=== PATIENT | female | born 1945 | race Caucasian/White ===

== ENCOUNTER 2018-01-07 19:44 | Observation (INO) ==
[2018-01-07] MEDS ORDERED: Adenosine Inj 6 MG/2 ML Syringe IV.PUSH ONE (19:59)
[2018-01-07] MEDS ORDERED: Sod Chloride 0.9% Inj 1,000 ML IV.SIG ONE (20:12)
--- NOTE | 2018-01-07 20:19 | ED ---
HPI General Chief Complaint: Chest Pain Stated Complaint: Cardiac Time Seen by Provider: 01/07/18 19:51 Source: patient and RN notes reviewed Mode of arrival: EMS Limitations: no limitations History of Present Illness HPI narrative: 72-year-old female presents to the emergency department via EMS for evaluation of chest pain, SVT. According to EMS, she called 911 for chest pain. Upon arrival, heart rate was 200. EKG showed SVT. Patient was given adenosine 6 mg IV and converted to sinus tachycardia, heart rate 115-120. The patient reports history of cardiac surgery when she was young child. She takes lisinopril that she was recently started on for hypertension. Since she converted to sinus tachycardia, patient states she feels back to her baseline and has no chest pain. While EMS was giving report, patient's heart rate went back up to 180. MD complaint: Reports chest pain STEMI Alert: No Duration: improved Onset: during rest Pain location: Reports substernal Severity: moderate Quality: Reports tightness Pain radiation: Reports none Relieving factors: other (converting to ST from SVT) Treatments prior to arrival chest pain: Reports other (adenosine 6 mg) Related Data Home Medications Medication Instructions Recorded Confirmed bupropion HCl [Wellbutrin SR] 150 mg PO BID 01/07/18 01/07/18 diazepam 5 mg PO BID 01/07/18 01/07/18 furosemide [Lasix] 40 mg PO DAILY 01/07/18 01/07/18 levothyroxine [Synthroid] 88 mcg PO DAILY 01/07/18 01/07/18 lisinopril 10 mg PO DAILY 01/07/18 01/07/18 Allergies Allergy/AdvReac Type Severity Reaction Status Date / Time adhesive Allergy Severe RASH Verified 01/08/18 00:49 aspirin Allergy Severe CANNOT Verified 01/08/18 00:49 TAKE DUE TO GASTRIC BYPASS atorvastatin Allergy Severe CANNOT Verified 01/08/18 00:49 TAKE DUE TO GASTRIC BYPASS azithromycin Allergy Severe CANNOT Verified 01/08/18 00:49 TAKE DUE TO GASTRIC BYPASS codeine Allergy Severe RAPID Verified 01/08/18 00:49 HEART RATE doxycycline Allergy Severe CANNOT Verified 01/08/18 00:49 TAKE DUE TO GASTRIC BYPASS ibuprofen Allergy Severe CANNOT Verified 01/08/18 00:49 TAKE DUE TO GASTRIC BYPASS minocycline Allergy Severe CANNOT Verified 01/08/18 00:49 TAKE DUE TO GASTRIC BYPASS tigecycline Allergy Severe CANNOT Verified 01/08/18 00:49 TAKE DUE TO GASTRIC BYPASS ALL ANTIBIOTICS EXCEPT Allergy Severe Rash, Uncoded 01/08/18 00:49 AMOXICILLIN Localized CRESTOR Allergy Severe CANNOT Uncoded 01/08/18 00:49 TAKE DUE TO GASTRIC BYPASS Review of Systems ROS: all other systems reviewed are negative PMFSH Social History Social History Substance History: No History of Abuse Second Hand Smoke Exposure: No Smoking Status: Never smoker How Often Do You Have a Drink Containing Alcohol: Never Exam Narrative Exam Narrative: GENERAL: Well-nourished, well-developed female patient, afebrile. SKIN: Focused skin assessment warm/dry. HEAD: Normocephalic. Atraumatic. EYES: No scleral icterus. No injection or drainage. NECK: Supple, trachea midline. No JVD or lymphadenopathy. CARDIOVASCULAR: Regular rhythm without murmurs, gallops, or rubs. Patient is tachycardic with HR in the 180's RESPIRATORY: Breath sounds equal bilaterally. No accessory muscle use. Lung sounds are clear to auscultation. GASTROINTESTINAL: Abdomen soft, non-tender, nondistended. MUSCULOSKELETAL: No cyanosis, or edema. BACK: Nontender without obvious deformity. No CVA tenderness. Course Initial Documented Vital Signs Pulse Rate 178 H 01/07/18 19:49 Respiratory Rate 18 01/07/18 19:49 Blood Pressure 132/77 01/07/18 19:49 Pulse Oximetry 97 01/07/18 19:49 Last Documented Vital Signs Temperature 98.2 F 01/08/18 14:56 Pulse Rate 86 01/08/18 18:00 Respiratory Rate 18 01/08/18 16:07 Blood Pressure 151/92 H 01/08/18 16:07 Pulse Oximetry 96 01/08/18 16:07 Medical Decision Making RAMONA Attestation RAMONA supervised visit: Yes Attestation: I, Dr. Oconnor, have reviewed the advance practice practitioner's documentation and am in agreement, met with the patient face to face, made the diagnosis, and the medical decision making was done by me. *My assessment and Findings: [-Patient is 72-year-old female presented to emergency room with high heart rate, initially was treated for SVT, heart rate improved she was diagnosed with new onset of atrial fibrillation. She improved with Cardizem. Patient was admitted for new onset of A. fib with RVR and chest pain.] [facility] Narrative Medical decision making narrative: 72-year-old female presents to the emergency department via EMS for evaluation of chest pain, SVT. Patient was given adenosine 6 mg IV prior to arrival. However, during EMSs report, patient back into SVT. Vagal maneuvers were attempted, but failed. Patient was given adenosine 12 mg IV and converted to sinus tachycardia, heart rate 115-120. Repeat EKG is ordered. CBC, CMP, CK, troponin, magnesium, PTT, PT/INR, d-dimer , chest x-ray are ordered and pending. Patient is given normal saline 1 L IV bolus. Repeat EKG shows atrial fibrillation, heart rate 110. CBC shows slight leukocytosis 11.1. CMP shows creatinine 1.11. CK is 148. Troponin is 0.04. Magnesium is 2.0. PTT is 19.4. PT/INR is 10.6/1.0. D-dimer is 0.50. Chest x- ray shows no evidence of acute cardiopulmonary disease. Patient's heart rate went back up to 164. Patient is given Cardizem 20 mg IV. Heart rate is down to 90s to low 100s. She is given metoprolol 50 mg p.o. Patient will be admitted for A. fib with RVR, chest pain. Dr. Lowry accepted admission. Medical Screen Exam Complete: Yes Emergency Medical Condition: Yes Differential Diagnosis Differential Diagnosis: SVT vs. ACS vs. electrolyte abnormality vs. dehydration vs. PE Medical Records Medical records reviewed: Yes I reviewed the patient's medical records. Lab Data Result diagrams: 01/08/18 06:27 01/08/18 06:27 Lab Results 01/07/18 01/07/18 01/07/18 Range/Units 20:25 20:25 20:25 WBC 11.1 H (4.0-11.0) th/mm3 RBC 4.25 (4.00-5.30) mil/mm3 Hgb 14.0 (11.6-15.3) gm/dL Hct 42.7 (35.0-46.0) % MCV 100.4 H (80.0-100.0) fL MCH 32.8 (27.0-34.0) pg MCHC 32.7 (32.0-36.0) % RDW 14.7 (11.6-17.2) % Plt Count 238 (150-450) th/mm3 MPV 9.5 (7.0-11.0) fL Prelim Diff (Auto) Slide review pending Neut % (Auto) 74.6 H (16.0-70.0) % Lymph % (Auto) 14.2 (9.0-44.0) % [place] % (Auto) 9.5 H (0.0-8.0) % Eos % (Auto) 1.5 (0.0-4.0) % Baso % (Auto) 0.2 (0.0-2.0) % Neut # (Auto) 8.3 H (1.8-7.7) th/mm3 Lymph # (Auto) 1.6 (1.0-4.8) th/mm3 [place] # (Auto) 1.1 H (0.0-0.9) th/mm3 Eos # (Auto) 0.2 (0.0-0.4) th/mm3 Baso # (Auto) 0.0 (0.0-0.2) th/mm3 WBC Differential . Diff Scan Auto diff confirmed Differential Comment . Platelet Estimate Normal (Normal) Platelet Morphology Normal (Normal) Keratocytes Occ H (None) PT 10.6 (9.8-11.6) sec INR 1.0 Ratio APTT 19.4 L (24.3-30.1) sec D-Dimer Quant (PE/DVT) 0.50 (0.00-0.50) mg/L FEU Sodium 143 (136-145) meq/L Potassium 3.9 (3.5-5.1) meq/L Chloride 108 H (98-107) meq/L Carbon Dioxide 23.8 (21.0-32.0) meq/L Anion Gap 11 (5-15) meq/L BUN 12 (7-18) mg/dL Creatinine 1.11 H (0.50-1.00) mg/dL Estimated GFR 48 L (>89) mL/min Random Glucose 111 H (74-106) mg/dL Calcium 8.3 L (8.5-10.1) mg/dL Magnesium 2.0 (1.5-2.5) mg/dL Total Bilirubin 0.4 (0.2-1.0) mg/dL AST 28 (15-37) U/L ALT 20 (10-53) U/L Alkaline Phosphatase 117 (45-117) U/L Total Creatine Kinase 148 (26-192) U/L CK-MB (CK-2) 1.9 (0.5-3.6) ng/mL Troponin I 0.04 (0.02-0.05) ng/mL Total Protein 6.5 (6.4-8.2) g/dL Albumin 3.3 L (3.4-5.0) g/dL TSH (0.358-3.740) uIU/mL Urine Color (Yellw/Straw) Urine Clarity (Clear) Urine pH (5.0-8.5) Ur Specific [place] (1.002-1.035) Urine Protein (Neg-Trace) mg/dL Urine Glucose (UA) (Negative) mg/dL Urine Ketones (Negative) mg/dL Urine Occult Blood (Negative) Urine Nitrate (Negative) Urine Bilirubin (Negative) Urine Urobilinogen (Less than 2) mg/dL Ur Leukocyte Esterase (Negative) Urine RBC (0-3) /hpf Urine WBC (0-5) /hpf Ur Squamous Epith Cells (0-5) /hpf Hyaline Casts (0-3) /lpf Micro UA Comment Ur Microscopic Review Urine Culture Comments 01/08/18 01/08/18 01/08/18 Range/Units 00:22 05:05 06:27 WBC 7.8 (4.0-11.0) th/mm3 RBC 3.86 L (4.00-5.30) mil/mm3 Hgb 12.9 (11.6-15.3) gm/dL Hct 38.2 (35.0-46.0) % MCV 98.9 (80.0-100.0) fL MCH 33.3 (27.0-34.0) pg MCHC 33.6 (32.0-36.0) % RDW 14.6 (11.6-17.2) % Plt Count 260 (150-450) th/mm3 MPV 8.8 (7.0-11.0) fL Prelim Diff (Auto) Neut % (Auto) 57.3 (16.0-70.0) % Lymph % (Auto) 30.4 (9.0-44.0) % [place] % (Auto) 10.4 H (0.0-8.0) % Eos % (Auto) 1.4 (0.0-4.0) % Baso % (Auto) 0.5 (0.0-2.0) % Neut # (Auto) 4.5 (1.8-7.7) th/mm3 Lymph # (Auto) 2.4 (1.0-4.8) th/mm3 [place] # (Auto) 0.8 (0.0-0.9) th/mm3 Eos # (Auto) 0.1 (0.0-0.4) th/mm3 Baso # (Auto) 0.0 (0.0-0.2) th/mm3 WBC Differential . Diff Scan Differential Comment Auto diff final Platelet Estimate (Normal) Platelet Morphology (Normal) Keratocytes (None) PT (9.8-11.6) sec INR Ratio APTT (24.3-30.1) sec D-Dimer Quant (PE/DVT) (0.00-0.50) mg/L FEU Sodium (136-145) meq/L Potassium (3.5-5.1) meq/L Chloride (98-107) meq/L Carbon Dioxide (21.0-32.0) meq/L Anion Gap (5-15) meq/L BUN (7-18) mg/dL Creatinine (0.50-1.00) mg/dL Estimated GFR (>89) mL/min Random Glucose (74-106) mg/dL Calcium (8.5-10.1) mg/dL Magnesium (1.5-2.5) mg/dL Total Bilirubin (0.2-1.0) mg/dL AST (15-37) U/L ALT (10-53) U/L Alkaline Phosphatase (45-117) U/L Total Creatine Kinase (26-192) U/L CK-MB (CK-2) (0.5-3.6) ng/mL Troponin I 0.06 H (0.02-0.05) ng/mL Total Protein (6.4-8.2) g/dL Albumin (3.4-5.0) g/dL TSH (0.358-3.740) uIU/mL Urine Color Straw (Yellw/Straw) Urine Clarity Clear (Clear) Urine pH 7.0 (5.0-8.5) Ur Specific [place] 1.004 (1.002-1.035) Urine Protein Negative (Neg-Trace) mg/dL Urine Glucose (UA) Negative (Negative) mg/dL Urine Ketones Negative (Negative) mg/dL Urine Occult Blood Negative (Negative) Urine Nitrate Negative (Negative) Urine Bilirubin Negative (Negative) Urine Urobilinogen Less than 2 (Less than 2) mg/dL Ur Leukocyte Esterase Negative (Negative) Urine RBC Less than 1 (0-3) /hpf Urine WBC Less than 1 (0-5) /hpf Ur Squamous Epith Cells 1 (0-5) /hpf Hyaline Casts 1 (0-3) /lpf Micro UA Comment Culture not ind Ur Microscopic Review Not Reportable Urine Culture Comments Culture not ind 01/08/18 01/08/18 01/08/18 Range/Units 06:27 06:27 06:27 WBC (4.0-11.0) th/mm3 RBC (4.00-5.30) mil/mm3 Hgb (11.6-15.3) gm/dL Hct (35.0-46.0) % MCV (80.0-100.0) fL MCH (27.0-34.0) pg MCHC (32.0-36.0) % RDW (11.6-17.2) % Plt Count (150-450) th/mm3 MPV (7.0-11.0) fL Prelim Diff (Auto) Neut % (Auto) (16.0-70.0) % Lymph % (Auto) (9.0-44.0) % [place] % (Auto) (0.0-8.0) % Eos % (Auto) (0.0-4.0) % Baso % (Auto) (0.0-2.0) % Neut # (Auto) (1.8-7.7) th/mm3 Lymph # (Auto) (1.0-4.8) th/mm3 [place] # (Auto) (0.0-0.9) th/mm3 Eos # (Auto) (0.0-0.4) th/mm3 Baso # (Auto) (0.0-0.2) th/mm3 WBC Differential Diff Scan Differential Comment Platelet Estimate (Normal) Platelet Morphology (Normal) Keratocytes (None) PT (9.8-11.6) sec INR Ratio APTT (24.3-30.1) sec D-Dimer Quant (PE/DVT) (0.00-0.50) mg/L FEU Sodium 146 H (136-145) meq/L Potassium 3.5 (3.5-5.1) meq/L Chloride 111 H (98-107) meq/L Carbon Dioxide 24.8 (21.0-32.0) meq/L Anion Gap 10 (5-15) meq/L BUN 9 (7-18) mg/dL Creatinine 0.78 (0.50-1.00) mg/dL Estimated GFR 73 L (>89) mL/min Random Glucose 82 (74-106) mg/dL Calcium 8.5 (8.5-10.1) mg/dL Magnesium (1.5-2.5) mg/dL Total Bilirubin 0.6 (0.2-1.0) mg/dL AST 23 (15-37) U/L ALT 18 (10-53) U/L Alkaline Phosphatase 103 (45-117) U/L Total Creatine Kinase (26-192) U/L CK-MB (CK-2) (0.5-3.6) ng/mL Troponin I 0.05 (0.02-0.05) ng/mL Total Protein 5.7 L D (6.4-8.2) g/dL Albumin 3.0 L (3.4-5.0) g/dL TSH 2.880 (0.358-3.740) uIU/mL Urine Color (Yellw/Straw) Urine Clarity (Clear) Urine pH (5.0-8.5) Ur Specific [place] (1.002-1.035) Urine Protein (Neg-Trace) mg/dL Urine Glucose (UA) (Negative) mg/dL Urine Ketones (Negative) mg/dL Urine Occult Blood (Negative) Urine Nitrate (Negative) Urine Bilirubin (Negative) Urine Urobilinogen (Less than 2) mg/dL Ur Leukocyte Esterase (Negative) Urine RBC (0-3) /hpf Urine WBC (0-5) /hpf Ur Squamous Epith Cells (0-5) /hpf Hyaline Casts (0-3) /lpf Micro UA Comment Ur Microscopic Review Urine Culture Comments Imaging Data Radiologist's impression: Chest X-Ray 01/07/18 20:12 CONCLUSION: No evidence of acute cardiopulmonary disease. Discharge Plan Discharge Disposition Patient Disposition: 30 Still Patient Discharge Details Diagnosis: Atrial fibrillation with RVR, Chest pain Physicians Team ED Provider: Raoul Estrada ED Midlevel Provider: Erica Jalloh Primary Care Provider: Ken Vogel Attending Provider: Miguelito Benjamin Other Providers: Cristhian Toussaint Status ED Status: Left Department Discharge Information Discharge Date/Time: 01/07/18 23:28
[2018-01-07 20:38] LABS: Baso % (Auto) 0.2 % (0.0-2.0); Eos # (Auto) 0.2 th/mm3 (0.0-0.4); Eos % (Auto) 1.5 % (0.0-4.0); Hematocrit 42.7 % (35.0-46.0); Lymph # (Auto) 1.6 th/mm3 (1.0-4.8); Lymph % (Auto) 14.2 % (9.0-44.0); Mean Corpuscular HGB Conc 32.7 % (32.0-36.0); Mean Corpuscular Hemoglobin 32.8 pg (27.0-34.0); Mean Corpuscular Volume 100.4 fL (80.0-100.0); Mean Platelet Volume 9.5 fL (7.0-11.0); Mono # (Auto) 1.1 th/mm3 (0.0-0.9); Mono % (Auto) 9.5 % (0.0-8.0); Neut # (Auto) 8.3 th/mm3 (1.8-7.7); Neut % (Auto) 74.6 % (16.0-70.0); Platelet Count 238 th/mm3 (150-450); Red Blood Count 4.25 mil/mm3 (4.00-5.30); Red Cell Distribution Width 14.7 % (11.6-17.2); White Blood Count 11.1 th/mm3 (4.0-11.0)
[2018-01-07 21:00] LABS: Alanine Aminotransferase 20 U/L (10-53)
[2018-01-07 21:03] LABS: Alkaline Phosphatase 117 U/L (45-117); Creatine Kinase 148 U/L (26-192); Total Protein 6.5 g/dL (6.4-8.2); Troponin I 0.04 ng/mL (0.02-0.05)
--- NOTE | 2018-01-07 21:03 | XR ---
EXAM DATE: 01/07/2018 8:12 PM EDT AGE/SEX: 72 years / Female INDICATIONS: Chest pain. CLINICAL DATA: This is the patient's initial encounter. Patient reports that signs and symptoms have been present for 1 day and indicates a pain score of 3/10. MEDICAL/SURGICAL HISTORY: None. . Left knee replacement. COMPARISON: . FINDINGS: A single AP view of the chest demonstrates the lungs to be symmetrically aerated without evidence of mass, infiltrate or effusion. The cardiomediastinal contours are unremarkable. Median sternotomy ch anges are again noted. Osseous structures are grossly intact. CONCLUSION: No evidence of acute cardiopulmonary disease. Electronically signed by: Darío Shoemaker MD 01/07/2018 9:02 PM EDT
[2018-01-07 21:05] LABS: Albumin 3.3 g/dL (3.4-5.0); Anion Gap 11 meq/L (5-15); Aspartate Aminotransferase 28 U/L (15-37); Blood Urea Nitrogen 12 mg/dL (7-18); Calcium 8.3 mg/dL (8.5-10.1); Carbon Dioxide 23.8 meq/L (21.0-32.0); Chloride 108 meq/L (98-107); Glomerular Filtration Rate 48 mL/min (>89); Glucose,Random 111 mg/dL (74-106); Potassium 3.9 meq/L (3.5-5.1); Sodium 143 meq/L (136-145)
[2018-01-07 21:06] LABS: Activated Partial Thrombo Time 19.4 sec (24.3-30.1); Prothrombin Time 10.6 sec (9.8-11.6)
[2018-01-07 21:14] LABS: D-Dimer 0.5 mg/L FEU (0.00-0.50)
[2018-01-07 21:16] LABS: Creatine Kinase MB 1.9 ng/mL (0.5-3.6)
[2018-01-07] MEDS ORDERED: Metoprolol Tartrate 50 MG Tablet PO ONE (22:00)
[2018-01-07] MEDS ORDERED: Bisacodyl 10 MG Supp RECTAL PRN (22:21)
[2018-01-07] MEDS ORDERED: Acetaminophen 325 MG Tablet PO PRN (22:21)
[2018-01-07 22:34] LABS: Platelet Estimate Normal (Normal); Platelet Morphology Normal (Normal)
[2018-01-07] MEDS: Sod Chloride 0.9% Inj 1,000 ML IV.CONT SCH (23:00)
--- NOTE | 2018-01-08 00:09 | P.HPIM ---
History of Present Illness Primary Care Physician: Ken Vogel MD History of Present Illness: This is a 72-year-old female with a PMH of HTN who was brought to the ER by EMS for c/o chest pain. Pt states she had sudden onset of palpitations earlier tonight associated w/ "chest pressure". Upon EMS arrival, noted to be in SVT w / HR >200's, s/p Adenosine 6mg IV w/ conversion to NSR. While in ER, had recurrent episode of SVT, s/p Adenosine 12mg, upon slowing of HR noted to be in A-fib w/ RVR, s/p Cardizem IV and Metoprolol PO in ER, HR currently 100-105. Reports no previous h/o A-fib. States she was seen by PCP on Wednesday and noted to have PVC's, pending appt w/ Dehydration Unit Operator, Dr. Garcia, in [place]. Denies fever, chills or sick contacts. Chest pain substernal, pressure-like, moderate, non-radiating, associated w/ SOB, now resolved. On arrival, BP 132/77 , HR 178, O2 sat 97% on RA, Afebrile. WBC 11.1. INR 1.0. D-dimer negative. Creatinine 1.11, previously 0.85 on 01/04/13. Troponin 0.04. CXR with no acute findings. - Diagnosis (1) Atrial fibrillation with RVR (2) Chest pain (3) Renal insufficiency Inpatient Certification: I certify that the inpatient services were ordered in accordance with Medicare regulations governing the order. This includes certification that hospital inpatient services are reasonable and necessary and in the case of services not specified as inpatient-only under 42 CFR 419.22(n), that they are appropriately provided as inpatient services in accordance to with the 2-midnight benchmark under 43 CFR 412.3(e) Estimated Total Length of Stay (Days): 2 Plans for Post Hospital Care: Not yet determined Review of Systems PAST FAMILY HISTORY: Reviewed. No h/o DM or CAD All other systems reviewed negative except as stated in HPI PMFSH - History History Provided By: Patient - Medical History Medical History: Medical History (Last Reviewed 01/07/18 @ 21:15 by Savannah Boateng RN) Hypertension - Tobacco History Second Hand Smoke Exposure: No Smoking Status: Never smoker - Alcohol History How Often Do You Have a Drink Containing Alcohol: Never - Substance Use History Substance History: No History of Abuse - Immunization History Tetanus Immunization: Unsure Medications and Allergies Active Medications: Active Medications Acetaminophen (Tylenol) 650 mg PO Q4H PRN PRN Reason: Temp > 100.4 Al Hydroxide/Mg Hydroxide (Milk Of Magnesia Liq) 30 ml PO Q12H PRN PRN Reason: Mild Constipation Bisacodyl (Dulcolax Supp) 10 mg RECTAL DAILY PRN PRN Reason: SEVERE CONSITIPATION Bupropion HCl (Wellbutrin Sr) 150 mg PO BID [facility] Diazepam (Valium) 5 mg PO BID [facility] Sodium Chloride (Ns Inj) 1,000 mls @ 100 mls/hr IV.CONT .Q10H [facility] Last Admin: 01/07/18 23:00 Dose: 100 mls/hr Lactulose (Lactulose Liq) 30 ml PO DAILY PRN PRN Reason: SEVERE CONSITIPATION Metoprolol Tartrate (Lopressor) 25 mg PO BID [facility] Ondansetron HCl (Zofran Inj) 4 mg IV.PUSH Q6H PRN PRN Reason: NAUSEA OR VOMITING Senna/Docusate Sodium (Elizabeth-Colace) 1 tab PO BID [facility] Sennosides (Senokot) 17.2 mg PO Q12H PRN PRN Reason: Moderate Constipation Sodium Chloride (Ns Flush) 2 ml IV.FLUSH UNSCH PRN PRN Reason: FLUSH AFTER USING IV ACCESS Allergies Allergy/AdvReac Type Severity Reaction Status Date / Time adhesive Allergy Severe RASH Unverified 11/17/16 18:08 aspirin Allergy Severe CANNOT Unverified 11/17/16 18:08 TAKE DUE TO GASTRIC BYPASS atorvastatin Allergy Severe CANNOT Unverified 11/17/16 18:08 TAKE DUE TO GASTRIC BYPASS azithromycin Allergy Severe CANNOT Unverified 11/17/16 18:08 TAKE DUE TO GASTRIC BYPASS codeine Allergy Severe RAPID Unverified 11/17/16 18:08 HEART RATE doxycycline Allergy Severe CANNOT Unverified 11/17/16 18:08 TAKE DUE TO GASTRIC BYPASS ibuprofen Allergy Severe CANNOT Unverified 11/17/16 18:08 TAKE DUE TO GASTRIC BYPASS minocycline Allergy Severe CANNOT Unverified 11/17/16 18:08 TAKE DUE TO GASTRIC BYPASS tigecycline Allergy Severe CANNOT Unverified 11/17/16 18:08 TAKE DUE TO GASTRIC BYPASS ALL ANTIBIOTICS EXCEPT Allergy Severe Uncoded 02/18/11 02:48 AMOXICILLIN CRESTOR Allergy Severe CANNOT Uncoded 02/18/11 02:48 TAKE DUE TO GASTRIC BYPASS Home Medications Medication Instructions Recorded Confirmed Type RX: diazepam 5 mg PO BID 01/07/18 01/07/18 History RX: lisinopril 10 mg PO DAILY 01/07/18 01/07/18 History bupropion HCl [Wellbutrin SR] 150 mg PO BID 01/07/18 01/07/18 History furosemide [Lasix] 40 mg PO DAILY 01/07/18 01/07/18 History levothyroxine [Synthroid] 88 mcg PO DAILY 01/07/18 01/07/18 History Exam Vital signs: Vital Signs 01/07/18 19:49 01/07/18 20:50 01/07/18 21:18 Pulse Rate 178 H 87 101 H Respiratory Rate 18 20 22 Blood Pressure 132/77 161/106 H 166/94 H Pulse Oximetry 97 98 95 01/07/18 22:14 01/07/18 22:45 01/07/18 23:20 Pulse Rate 109 H 99 H Respiratory Rate 20 22 Blood Pressure 170/80 H 170/80 H Pulse Oximetry 96 97 97 Intake & Output 01/07/18 01/07/18 01/08/18 06:59 18:59 06:59 Intake Total 1140 / 1140 Balance 1140 / 1140 Weight 74.5 kg Intake: IV 1000 / 1000 NS Inj 1,000 ML @ Wide Open IV. 1000 / 1000 SIG BOLUS ONE Rx#:[id number] Oral 140 / 140 Other: # Voids 1 Weight On Admission 74.5 kg Narrative: PE: GENERAL: Extreme a pleasant elderly white female in no acute distress. at bedside. SKIN: Focused skin assessment warm and dry. HEENT: PERRLA, EOMI. No scleral icterus or conjunctival pallor. No lid lag or facial droop. CARDIOVASCULAR: Irregularly irregular, in A. fib, HR 100. No obvious murmurs to auscultation. No chest tenderness to palpation. RESPIRATORY: No obvious rhonchi or wheezing. Clear to auscultation. Breath sounds equal bilaterally. GASTROINTESTINAL: Abdomen soft, non-tender, nondistended. BS normal. MUSCULOSKELETAL: Extremities without clubbing, cyanosis, or edema. No obvious deformities. NEUROLOGICAL: Awake, alert and oriented x4. No focal neurologic deficits. Moving both upper and lower extremities spontaneously. PSYCHIATRIC: Appropriate mood and affect. Insight and judgment normal. Results - Labs CBC & Chem 7: 01/07/18 20:25 01/07/18 20:25 Labs: Short CBC 01/07/18 Range/Units 20:25 WBC 11.1 H (4.0-11.0) th/mm3 Hgb 14.0 (11.6-15.3) gm/dL Hct 42.7 (35.0-46.0) % Plt Count 238 (150-450) th/mm3 BMP 01/07/18 20:25 Sodium 143 Potassium 3.9 Chloride 108 H Carbon Dioxide 23.8 BUN 12 Creatinine 1.11 H Calcium 8.3 L Cardiac Enzymes 01/07/18 Range/Units 20:25 Total Creatine Kinase 148 (26-192) U/L CK-MB (CK-2) 1.9 (0.5-3.6) ng/mL Troponin I 0.04 (0.02-0.05) ng/mL Liver Function 01/07/18 Range/Units 20:25 Total Bilirubin 0.4 (0.2-1.0) mg/dL AST 28 (15-37) U/L ALT 20 (10-53) U/L Alkaline Phosphatase 117 (45-117) U/L Albumin 3.3 L (3.4-5.0) g/dL - Imaging Impressions Chest X-Ray 01/07/18 20:12 CONCLUSION: No evidence of acute cardiopulmonary disease. Caprini VTE Risk Assessment Caprini VTE Risk Assessment: No/Low Risk (score <= 1) Caprini Risk Assessment Model: Point Value = 1 Point Value = 2 Point Value = 3 Point Value = 5 Age 41-60 Minor surgery BMI > 25 kg/m2 Swollen legs Varicose veins or History of unexplained or recurrent spontaneous Oral contraceptives or hormone replacement Sepsis (< 1 month) Serious lung disease, including pneumonia (< 1 month) Abnormal pulmonary function Acute myocardial infarction Congestive heart failure (< 1 month) History of inflammatory bowel disease Medical patient at bed rest Age 61-74 Arthroscopic surgery Major open surgery (> 45 min) Laparoscopic surgery (> 45 min) Malignancy Confined to bed (> 72 hours) Immobilizing plaster cast Central venous access Age >= 75 History of VTE Family history of VTE Factor V Leiden Prothrombin [id number] Lupus anticoagulant Anticardiolipin antibodies Elevated serum homocysteine Heparin-induced thrombocytopenia Other congenital or acquired thrombophilia Stroke (< 1 month) Elective arthroplasty Hip, pelvis, or leg fracture Acute spinal cord injury (< 1 month) Prophylaxis Regimen: Total Risk Factor Score Risk Level Prophylaxis Regimen 0-1 Low Early ambulation 2 Moderate Order ONE of the following: *Sequential Compression Device (SCD) *Heparin 5000 units SQ BID 3-4 Higher Order ONE of the following medications: *Heparin 5000 units SQ TID *Enoxaparin/Lovenox 40 mg SQ daily (WT < 150 kg, CrCl > 30 mL/min) *Enoxaparin/Lovenox 30 mg SQ daily (WT < 150 kg, CrCl > 10-29 mL/min) *Enoxaparin/Lovenox 30 mg SQ BID (WT < 150 kg, CrCl > 30 mL/min) AND/OR *Sequential Compression Device (SCD) 5 or more Highest Order ONE of the following medications: *Heparin 5000 units SQ TID (Preferred with Epidurals) *Enoxaparin/Lovenox 40 mg SQ daily (WT < 150 kg, CrCl > 30 mL/min) *Enoxaparin/Lovenox 30 mg SQ daily (WT < 150 kg, CrCl > 10-29 mL/min) *Enoxaparin/Lovenox 30 mg SQ BID (WT < 150 kg, CrCl > 30 mL/min) AND *Sequential Compression Device (SCD) Assessment and Plan - Assessment (1) Atrial fibrillation with RVR Code(s): I48.91 - Unspecified atrial fibrillation Status: Acute (2) Chest pain Code(s): R07.9 - Chest pain, unspecified Status: Acute (3) Renal insufficiency Code(s): N28.9 - Disorder of kidney and ureter, unspecified Status: Acute - Plan A/P: 1. A-fib w/ RVR: New Onset, found to be in SVT w/ HR >200's, however noted to be in A-fib w/ RVR once rate slowed, s/p Cardizem IV and Metoprolol PO in ER, will admit to [facility], telemetry, continue Metoprolol 25mg bid. Initial trop 0.04, check serial cardiac enzymes to eval for possible ischemia, check Echo to eval for valvular abnormality/cardiomyopathy. CXR w/ no acute findings, images reviewed. Hold ASA due to ALLERGY. Consult Cardiology for further eval/ recommendations. 2. Chest Pain: likely secondary to above, however r/o underlying ischemia w/ serial cardiac enzymes. 3. MARYAN: Creatinine 1.11, previously 0.85 on 01/04/13, IVF for hydration, repeat labs in am, monitor I/O. 4. DVT Prophylaxis: SCD/Teds 5. Social work for d/c planning as needed 6. Case discussed w/ ER physician at length, labs/records/imaging reviewed by me H&P: Quality - VTE Deep Vein Thrombosis/Pulmonary Embolism Present on Admission: No (2) Chest pain Qualifiers: Chest pain type: unspecified Qualified Code(s): R07.9 - Chest pain, unspecified
[2018-01-08 05:35] LABS: Bilirubin,Urine Negative (Negative); Clarity,Urine Clear (Clear); Color,Urine Straw (Yellw/Straw); Glucose,Urine (UA) Negative (Negative); Hyaline Casts,Urine 1 /lpf (0-3); Leukocyte Esterase,Urine Negative (Negative); Nitrite,Urine Negative (Negative); Specific Gravity,Urine 1.004 (1.002-1.035); Squamous Epithelial Cell,Urine 1 /hpf (0-5)
[2018-01-08 06:58] LABS: Baso % (Auto) 0.5 % (0.0-2.0); Eos # (Auto) 0.1 th/mm3 (0.0-0.4); Eos % (Auto) 1.4 % (0.0-4.0); Hematocrit 38.2 % (35.0-46.0); Hemoglobin 12.9 gm/dL (11.6-15.3); Lymph # (Auto) 2.4 th/mm3 (1.0-4.8); Lymph % (Auto) 30.4 % (9.0-44.0); Mean Corpuscular HGB Conc 33.6 % (32.0-36.0); Mean Corpuscular Hemoglobin 33.3 pg (27.0-34.0); Mean Corpuscular Volume 98.9 fL (80.0-100.0); Mean Platelet Volume 8.8 fL (7.0-11.0); Mono # (Auto) 0.8 th/mm3 (0.0-0.9); Mono % (Auto) 10.4 % (0.0-8.0); Neut # (Auto) 4.5 th/mm3 (1.8-7.7); Neut % (Auto) 57.3 % (16.0-70.0); Platelet Count 260 th/mm3 (150-450); Red Blood Count 3.86 mil/mm3 (4.00-5.30); Red Cell Distribution Width 14.6 % (11.6-17.2); White Blood Count 7.8 th/mm3 (4.0-11.0)
[2018-01-08 07:34] LABS: Anion Gap 10 meq/L (5-15); Aspartate Aminotransferase 23 U/L (15-37); Blood Urea Nitrogen 9 mg/dL (7-18); Calcium 8.5 mg/dL (8.5-10.1); Carbon Dioxide 24.8 meq/L (21.0-32.0); Chloride 111 meq/L (98-107); Glomerular Filtration Rate 73 mL/min (>89); Glucose,Random 82 mg/dL (74-106); Potassium 3.5 meq/L (3.5-5.1); Sodium 146 meq/L (136-145)
[2018-01-08 07:35] LABS: Alanine Aminotransferase 18 U/L (10-53)
[2018-01-08 07:37] LABS: Alkaline Phosphatase 103 U/L (45-117); Total Protein 5.7 g/dL (6.4-8.2)
[2018-01-08] MEDS: diazePAM 5 MG Tablet PO SCH ×2 (08:20→21:18)
[2018-01-08] MEDS: Metoprolol Tartrate 25 MG Tablet PO SCH ×2 (08:20→21:18)
[2018-01-08] MEDS: buPROPion 150 MG 12 HR Tablet PO SCH ×2 (08:20→21:18)
[2018-01-08] MEDS: Sod Chloride 0.9% Inj 1,000 ML IV.CONT SCH (09:29)
[2018-01-08] MEDS: Senna/Docusate Sodium 8.6/50 MG Tablet PO SCH ×2 (10:41→21:19)
--- NOTE | 2018-01-08 11:00 | P.PNADD ---
Addendum to Inpatient Note Reason for Addendum: Additional Documentation Additional information: The pt was having an echo done. She denies a history of A fib or hypertension. Family at the bedside. Continue Lopressor. Follow up echo read. Cardiology consult pending. Telemetry. Check a TSH.
[2018-01-08] MEDS ORDERED: Lisinopril 10 MG Tablet PO SCH (12:00)
--- NOTE | 2018-01-08 12:53 | ECHRPT ---
Indication: ATRIAL FIB/FLUTTER CONCLUSIONS Normal left ventricular size. Mild concentric left ventricular hypertrophy. The left ventricular systolic function is normal with an estimated ejection fraction in the range of 55-60%. The left atrial size is [id number] dilated. The right atrial size is moderately dilated. Mild mitral valve regurgitation. There is trace tricuspid valve regurgitation. BP: / HR: Rhythm: Atrial fibrillation, Atrial flut ter MEASUREMENTS (Male / Female) Normal Values Technical Quality:Fair 2D ECHO LV Diastolic Diameter PLAX 3.4 cm 4.2 - 5.9 / 3.9 - 5.3 cm IVS Diastolic Thickness 1.2 cm 0.6 - 1.0 / 0.6 - 0.9 cm LVPW Diastolic Thickness 1.2 cm 0.6 - 1.0 / 0.6 - 0.9 cm LV Relative Wall Thickness 0.7 RV Internal Dim ED PLAX 2.7 cm LVOT Diameter 1.8 cm Aortic Root Diameter 3.1 cm LA Systolic Diameter LX 3.7 cm 3.0 - 4.0 / 2.7 - 3.8 cm M-MODE AV Cusp Separation MM 1.4 cm DOPPLER AV Peak Velocity 150.5 cm/s AV Peak Gradient 9.1 mmHg AV Mean Gradient 4.5 mmHg AV Velocity Time Integral 24.3 cm LVOT Peak Velocity 59.8 cm/s LVOT Peak Gradient 1.4 mmHg LVOT Velocity Time Integral 12.3 cm AV Area Cont Eq vti 1.3 cm AV Area Cont Eq pk 1.0 cm Mitral E Point Velocity 73.1 cm/s Mitral A Point Velocity 64.7 cm/s Mitral E to A Ratio 1.1 LV E' Lateral Velocity 7.0 cm/s Mitral E to LV E' Lateral Ratio 10.4 LV E' Septal Velocity 4.0 cm/s Mitral E to LV E' Septal Ratio 18.3 TR Peak Velocity 360.0 cm/s TR Peak Gradient 51.8 mmHg Right Atrial Pressure 10.0 mmHg Pulmonary Artery Systolic Pressu 61.8 mmHg Right Ventricular Systolic Press 61.8 mmHg PV Peak Velocity 47.0 cm/s PV Peak Gradient 0.9 mmHg FINDINGS LEFT VENTRICLE Normal left ventricular size. Mild concentric left ventricular hypertrophy. The left ventricular systolic function is normal with an estimated ejection fraction in the range of 55-60%. RIGHT VENTRICLE Normal right ventricular size and systolic function. LEFT ATRIUM The left atrial size is moderate dilated. RIGHT ATRIUM The right atrial size is mildly dilated. ATRIAL SEPTUM No atrial level shunt is demonstrated by color flow Doppler interrogation. AORTA The aortic root and proximal ascending aorta are normal in size on limited imaging. MITRAL VALVE Mild mitral valve regurgitation. AORTIC VALVE Trileaflet aortic valve. No aortic valve stenosis or regurgitation. TRICUSPID VALVE There is trace tricuspid valve regurgitation. PULMONARY VALVE No pulmonary valve regurgitation or stenosis. VESSELS The inferior vena cava was not well visualized. PERICARDIUM No pericardial effusion. Alin Amato MD (Electronically Signed) Final Date:08 January 2018 12:53
--- NOTE | 2018-01-08 13:13 | ECG ---
Date Performed: 01/07/2018 Time Performed: 20:22:23 PTAGE: 72 years EKG: ATRIAL FIBRILLATION WITH RAPID VENTRICULAR RESPONSE ST DEVIATION AND MODERATE T-WAVE ABNORM ALITY, CONSIDER LATERAL ISCHEMIA ABNORMAL ECG PREVIOUS TRACING : 01/07/2018 20.03 DOCTOR: Alin Amato Interpretating Date/Time 01/08/2018 13:09:52
--- NOTE | 2018-01-08 13:14 | ECG ---
Date Performed: 01/07/2018 Time Performed: 20:03:45 PTAGE: 72 years EKG: SUPRAVENTRICULAR TACHYCARDIA LEFT VENTRICULAR HYPERTROPHY AND ST-T CHANGE ABNORMAL ECG PREVIOUS TRACING : 12/26/2012 15.30 DOCTOR: Alin Amato Interpretating Date/Time 01/08/2018 13:10:13
[2018-01-08] MEDS: Levothyroxine 88 MCG Tablet PO SCH (13:44)
[2018-01-08] MEDS: amLODIPine 5 MG Tablet PO SCH (14:59)
[2018-01-08] MEDS: Lisinopril 20 MG Tablet PO SCH (16:15)
[2018-01-09 07:35] LABS: Calcium 8.7 mg/dL (8.5-10.1); Carbon Dioxide 24.4 meq/L (21.0-32.0); Magnesium 2.3 mg/dL (1.5-2.5); Potassium 4.1 meq/L (3.5-5.1)
[2018-01-09] MEDS: Metoprolol Tartrate 25 MG Tablet PO SCH ×2 (09:36→22:10)
[2018-01-09] MEDS: Lisinopril 20 MG Tablet PO SCH (09:36)
[2018-01-09] MEDS: Levothyroxine 88 MCG Tablet PO SCH (09:36)
[2018-01-09] MEDS: Senna/Docusate Sodium 8.6/50 MG Tablet PO SCH ×2 (09:36→22:11)
[2018-01-09] MEDS: amLODIPine 5 MG Tablet PO SCH (09:36)
[2018-01-09] MEDS: buPROPion 150 MG 12 HR Tablet PO SCH ×2 (09:36→22:10)
--- NOTE | 2018-01-09 13:15 | P.PN ---
Subjective Interval history: Doing ok Physical Exam Vital signs: Vital Signs 01/08/18 13:10 01/08/18 14:00 01/08/18 14:56 Temperature 98.2 F Pulse Rate 93 H 85 Respiratory Rate 20 Blood Pressure 180/122 H 146/101 H Pulse Oximetry 95 01/08/18 15:00 01/08/18 16:00 01/08/18 16:07 Temperature Pulse Rate 79 80 81 Respiratory Rate 18 Blood Pressure 151/92 H Pulse Oximetry 96 01/08/18 17:00 01/08/18 18:00 01/08/18 19:00 Temperature Pulse Rate 86 86 96 H Respiratory Rate Blood Pressure Pulse Oximetry 01/08/18 20:00 01/08/18 21:00 01/08/18 22:00 Temperature 99 F Pulse Rate 100 H 94 H 86 Respiratory Rate 18 Blood Pressure 159/93 H Pulse Oximetry 97 01/08/18 23:00 01/09/18 00:00 01/09/18 00:25 Temperature 98.1 F Pulse Rate 82 95 H 93 H Respiratory Rate 20 Blood Pressure 185/101 H Pulse Oximetry 99 01/09/18 01:00 01/09/18 01:30 01/09/18 02:00 Temperature Pulse Rate 70 90 Respiratory Rate Blood Pressure 158/78 H Pulse Oximetry 01/09/18 03:00 01/09/18 04:00 01/09/18 05:00 Temperature 98.2 F Pulse Rate 92 H 74 96 H Respiratory Rate 20 Blood Pressure 187/99 H Pulse Oximetry 99 01/09/18 06:00 01/09/18 06:44 01/09/18 07:00 Temperature Pulse Rate 82 93 H Respiratory Rate Blood Pressure 170/78 H Pulse Oximetry 01/09/18 07:29 01/09/18 08:00 01/09/18 09:00 Temperature 97.7 F Pulse Rate 86 70 74 Respiratory Rate 18 Blood Pressure 151/94 H Pulse Oximetry 98 01/09/18 10:00 01/09/18 11:00 01/09/18 12:00 Temperature 98.7 F Pulse Rate 84 76 58 L Respiratory Rate 16 Blood Pressure 134/77 Pulse Oximetry 95 01/09/18 13:00 Temperature Pulse Rate 93 H Respiratory Rate Blood Pressure Pulse Oximetry Intake & Output 01/08/18 01/09/18 01/09/18 18:59 06:59 18:59 Intake Total 2500 / 2500 240 / 240 Output Total 1300 / 1300 400 / 400 Balance 1200 / 1200 -160 / -160 Weight 72.5 kg Intake: IV 1100 / 1100 NS Inj 1,000 ML @ 100 mls/hr IV 1100 / 1100 .CONT .Q10H NINO Rx#:[id number] Oral 1400 / 1400 240 / 240 Output: Urine 1300 / 1300 400 / 400 Other: Date of Last Bowel Movement 01/08/18 01/08/18 01/08/18 # Bowel Movements 2 - Constitutional no acute distress - Routine HEENT Exam Head: Present: normocephalic Eye: Present: PERRL ENT: Present: mucous membranes moist - Routine Respiratory Exam Present: CTA bilaterally - Routine Cardiovascular Exam Present: RRR, S1, S2 - Routine Abdominal Exam Present: soft - Routine Extremities Exam Present: pulses intact, normal capillary refill - Routine Neurological Exam Present: alert Alert, no fully oriented - Detailed Neurological Exam: Coma Scale Eye Opening: Spontaneous Motor Response: Obey commands Results - Labs CBC & Chem 7: 01/08/18 06:27 01/09/18 06:00 Laboratory Results - last 24 hr 01/09/18 06:00 Sodium 144 Potassium 4.1 Chloride 108 H Carbon Dioxide 24.4 Anion Gap 12 BUN 10 Creatinine 0.91 Estimated GFR 61 L Random Glucose 87 Calcium 8.7 Magnesium 2.3 Assessment and Plan - Assessment (1) Atrial fibrillation with RVR Code(s): I48.91 - Unspecified atrial fibrillation Status: Acute - Plan Sinus rhythm No chest pain. No palpitation Alert, but disoriented. Was on alprazolan bid Was DC If stable and oriented EPS and ablation tomorrow NPO after early breakfast
--- NOTE | 2018-01-09 13:50 | P.PNIM ---
Subjective Interval history: The patient was confused as to where she was. She denied any pain or discomfort. She says she does take diazepam at home as needed. Discussed with nursing. Physical Exam Vital signs: Vital Signs 01/08/18 14:00 01/08/18 14:56 01/08/18 15:00 Temperature 98.2 F Pulse Rate 93 H 85 79 Respiratory Rate 20 Blood Pressure 146/101 H Pulse Oximetry 95 01/08/18 16:00 01/08/18 16:07 01/08/18 17:00 Temperature Pulse Rate 80 81 86 Respiratory Rate 18 Blood Pressure 151/92 H Pulse Oximetry 96 01/08/18 18:00 01/08/18 19:00 01/08/18 20:00 Temperature 99 F Pulse Rate 86 96 H 100 H Respiratory Rate 18 Blood Pressure 159/93 H Pulse Oximetry 97 01/08/18 21:00 01/08/18 22:00 01/08/18 23:00 Temperature Pulse Rate 94 H 86 82 Respiratory Rate Blood Pressure Pulse Oximetry 01/09/18 00:00 01/09/18 00:25 01/09/18 01:00 Temperature 98.1 F Pulse Rate 95 H 93 H 70 Respiratory Rate 20 Blood Pressure 185/101 H Pulse Oximetry 99 01/09/18 01:30 01/09/18 02:00 01/09/18 03:00 Temperature Pulse Rate 90 92 H Respiratory Rate Blood Pressure 158/78 H Pulse Oximetry 01/09/18 04:00 01/09/18 05:00 01/09/18 06:00 Temperature 98.2 F Pulse Rate 74 96 H 82 Respiratory Rate 20 Blood Pressure 187/99 H Pulse Oximetry 99 01/09/18 06:44 01/09/18 07:00 01/09/18 07:29 Temperature 97.7 F Pulse Rate 93 H 86 Respiratory Rate 18 Blood Pressure 170/78 H 151/94 H Pulse Oximetry 98 01/09/18 08:00 01/09/18 09:00 01/09/18 10:00 Temperature Pulse Rate 70 74 84 Respiratory Rate Blood Pressure Pulse Oximetry 01/09/18 11:00 01/09/18 12:00 01/09/18 13:00 Temperature 98.7 F Pulse Rate 76 58 L 93 H Respiratory Rate 16 Blood Pressure 134/77 Pulse Oximetry 95 Intake & Output 01/08/18 01/09/1801/09/18 18:59 06:59 18:59 Intake Total 2500 / 2500 240 / 240 Output Total 1300 / 1300 400 / 400 Balance 1200 / 1200 -160 / -160 Weight 72.5 kg Intake: IV 1100 / 1100 NS Inj 1,000 ML @ 100 mls/hr IV 1100 / 1100 .CONT .Q10H NINO Rx#:[id number] Oral 1400 / 1400 240 / 240 Output: Urine 1300 / 1300 400 / 400 Other: Date of Last Bowel Movement 01/08/18 01/08/18 01/08/18 # Bowel Movements 2 Narrative: GENERAL: No distress. SKIN: Focused skin assessment warm and dry. HEENT: PERRLA, EOMI. No scleral icterus or conjunctival pallor. No lid lag or facial droop. CARDIOVASCULAR: Regular rate and rhythm. No obvious murmurs to auscultation. No chest tenderness to palpation. RESPIRATORY: No obvious rhonchi or wheezing. Clear to auscultation. Breath sounds equal bilaterally. GASTROINTESTINAL: Abdomen soft, non-tender, nondistended. BS normal. MUSCULOSKELETAL: Extremities without clubbing, cyanosis, or edema. No obvious deformities. NEUROLOGICAL: Confused. Moves all extremities equally. Normal speech. Results - Labs CBC & Chem 7: 01/08/18 06:27 01/09/18 06:00 Laboratory Results - last 24 hr 01/09/18 06:00 Sodium 144 Potassium 4.1 Chloride 108 H Carbon Dioxide 24.4 Anion Gap 12 BUN 10 Creatinine 0.91 Estimated GFR 61 L Random Glucose 87 Calcium 8.7 Magnesium 2.3 Assessment and Plan - Assessment (1) Atrial fibrillation with RVR Code(s): I48.91 - Unspecified atrial fibrillation Status: Acute (2) Chest pain Code(s): R07.9 - Chest pain, unspecified Status: Acute (3) Renal insufficiency Code(s): N28.9 - Disorder of kidney and ureter, unspecified Status: Acute - Plan A-fib w/ RVR New Onset, found to be in SVT w/ HR >200's, however noted to be in A-fib w/ RVR once rate slowed, s/p Cardizem IV and Metoprolol PO in ER. Cardiology consult appreciated. Echo with normal EF. -telemetry. -continue Metoprolol 25mg bid. -ablation scheduled in AM. Confusion Nonfocal exam. Likely s/t Valium. -hold Valium. -neuro checks. -frequent orientation. -check B12, ammonia. TSH normal. HTN Blood pressure now improved. -continue Lopressor, lisinopril and amlodipine per cardiology. MARYAN Creatinine 1.11, previously 0.85 on 01/04/13. -resolved with IVF for hydration. DVT Prophylaxis: SCD/Teds Discharge Planning: Await ablation (2) Chest pain Qualifiers: Chest pain type: unspecified Qualified Code(s): R07.9 - Chest pain, unspecified
--- NOTE | 2018-01-10 07:30 | MB ---
cc: Alin Amato MD,Miguelito Alonzo,Cristhian Antonio MD DATE: 01/07/2018 REASON FOR CONSULTATION: Supraventricular tachyarrhythmia. HISTORY OF PRESENT ILLNESS: Ms. Soto is a 73-year-old female with history of high blood pressure, hyperlipidemia, was at home yesterday morning, began with palpitation. She refers anxiety in the past, but not as the way she is feeling. She felt she was going to have a heart attack. She called 911. In the ambulance, she was having supraventricular tachycardia, rate was around 200 beats per minute. Adenosine 6 and 12 was given working to sinus rhythm, then converted into atrial fibrillation, subsequently back into sinus rhythm. I was consulted for evaluation and management. The chart was reviewed. The patient was evaluated. ALLERGIES: MULTIPLE. SHE IS ALLERGIC TO: 1. ADHESIVE TAPE. 2. ADENOSINE. 3. ASPIRIN. 4. ATORVASTATIN. 5. ZITHROMAX. 6. CODEINE. 7. IBUPROFEN. 8. DOXYCYCLINE. 9. MINOCYCLINE. 10. AMOXICILLIN. 11. CRESTOR. REVIEW OF SYSTEMS: Currently, the patient refers no chest pain, no chest discomfort, no palpitation. No vomiting. No fever. PHYSICAL EXAMINATION: GENERAL: Alert, fully oriented, in bed. VITAL SIGNS: Blood pressure is 180/122, pulse 84, respiratory rate 18. LUNGS: Ventilated. CARDIOVASCULAR: S1, S2. Regular. ABDOMEN: Soft. No masses. EXTREMITIES: No edema. DIAGNOSTIC DATA: Electrocardiogram on hospitalization show supraventricular tachyarrhythmia. Rate was around 175 beats per minute. Subsequently echocardiograms showed atrial fibrillation. LABORATORY DATA: Hemoglobin is 12.9, white blood cell 7.8. INR 1.0. Potassium 3.5, creatinine 0.78. TSH 2.88. Troponin 0.06. ASSESSMENT AND RECOMMENDATIONS: Ms. Soto has an episode of supraventricular tachyarrhythmia. She did have tachyarrhythmia in the past, but never there was any need for emergency room visit. 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 She had a short tachyarrhythmia that after 12 mg of adenosine converted into sinus rhythm. It looked like an atrial tachyarrhythmia. The patient went into atrial fibrillation because of the shortening of the refractory period by the adenosine. Currently, she is in sinus rhythm. Echo ejection fraction of around 55%-60%. There is some dilation of the right and left atrium. She has a history of ASD repaired. At this point, blood pressure is very high. We need to control the blood pressure first. Electrophysiology study and possible ablation discussed with her and her . The heart rate is too high for age. Maximum predictable heart rate is less than 150 beats per minute. The risks, the nature, and the benefits of the procedure are clearly stated to her. Risks include pneumothorax, cardiac perforation, stroke, and even . She had apparently and want to proceed. I asked to review the literature about the procedure. All of the questions were answered to my best knowledge. I will monitor Lila in the weekend. If she has agreed to proceed again then ablation will be performed Wednesday afternoon. MD GARDENIA Obando/gia/too , 01:41 PM , 01:50 PM
[2018-01-10] MEDS: buPROPion 150 MG 12 HR Tablet PO SCH ×2 (08:53→21:23)
[2018-01-10] MEDS: Levothyroxine 88 MCG Tablet PO SCH (08:53)
[2018-01-10] MEDS: Metoprolol Tartrate 25 MG Tablet PO SCH ×2 (08:53→21:23)
[2018-01-10] MEDS: Senna/Docusate Sodium 8.6/50 MG Tablet PO SCH ×3 (08:53→21:23)
[2018-01-10] MEDS: amLODIPine 5 MG Tablet PO SCH (08:53)
[2018-01-10] MEDS: Lisinopril 20 MG Tablet PO SCH (08:53)
[2018-01-10] MEDS ORDERED: amLODIPine 5 MG Tablet PO ONE (11:17)
--- NOTE | 2018-01-10 11:21 | P.PNIM ---
Subjective Interval history: The patient was sitting up in a chair. Her was present. They have decided not to pursue the EP study. The patient has endorsed some chest tightness. They state her confusion is improving. No acute concerns at this time. Physical Exam Vital signs: Vital Signs 01/09/18 12:00 01/09/18 13:00 01/09/18 14:00 Temperature 98.7 F Pulse Rate 58 L 93 H 82 Respiratory Rate 16 Blood Pressure 134/77 Pulse Oximetry 95 01/09/18 15:00 01/09/18 15:37 01/09/18 16:00 Temperature 97.9 F Pulse Rate 59 L 64 60 Respiratory Rate 18 18 Blood Pressure 117/83 Pulse Oximetry 97 01/09/18 17:00 01/09/18 18:00 01/09/18 19:00 Temperature Pulse Rate 62 62 59 L Respiratory Rate Blood Pressure Pulse Oximetry 01/09/18 20:00 01/09/18 21:00 01/09/18 22:00 Temperature 98.1 F Pulse Rate 70 90 97 H Respiratory Rate 18 Blood Pressure 179/118 H Pulse Oximetry 90 L 01/09/18 23:00 01/10/18 00:00 01/10/18 01:00 Temperature 98.1 F Pulse Rate 97 H 74 72 Respiratory Rate 16 Blood Pressure 132/81 Pulse Oximetry 92 L 01/10/18 02:00 01/10/18 03:00 01/10/18 03:44 Temperature Pulse Rate 58 L 70 Respiratory Rate 16 Blood Pressure Pulse Oximetry 01/10/18 03:57 01/10/18 04:00 01/10/18 05:00 Temperature 98.4 F Pulse Rate 70 72 68 Respiratory Rate 16 Blood Pressure 157/90 H Pulse Oximetry 98 01/10/18 06:00 01/10/18 07:00 01/10/18 08:00 Temperature 98.1 F Pulse Rate 76 81 80 Respiratory Rate 18 Blood Pressure 171/95 H Pulse Oximetry 98 01/10/18 09:00 Temperature Pulse Rate 74 Respiratory Rate Blood Pressure Pulse Oximetry Intake & Output 01/09/18 01/10/18 01/10/18 18:59 06:59 18:59 Intake Total 500 / 500 240 / 240 Output Total 260 / 260 325 / 325 Balance 240 / 240 -85 / -85 Weight 72 kg Intake: Oral 500 / 500 240 / 240 Output: Urine 260 / 260 325 / 325 Other: Date of Last Bowel Movement 01/08/18 01/08/18 01/08/18 # Bowel Movements 0 Narrative: GENERAL: No distress. SKIN: Focused skin assessment warm and dry. HEENT: PERRLA, EOMI. No scleral icterus or conjunctival pallor. No lid lag or facial droop. CARDIOVASCULAR: Regular rate and rhythm. No obvious murmurs to auscultation. No chest tenderness to palpation. RESPIRATORY: No obvious rhonchi or wheezing. Clear to auscultation. Breath sounds equal bilaterally. GASTROINTESTINAL: Abdomen soft, non-tender, nondistended. BS normal. MUSCULOSKELETAL: Extremities without clubbing, cyanosis, or edema. No obvious deformities. NEUROLOGICAL: Confusion improved. Moves all extremities equally. Normal speech. Results - Labs CBC & Chem 7: 01/08/18 06:27 01/09/18 06:00 Laboratory Results - last 24 hr 01/09/18 01/09/18 06:00 15:00 Ammonia 14 Vitamin B12 700 Assessment and Plan - Assessment (1) Atrial fibrillation with RVR Code(s): I48.91 - Unspecified atrial fibrillation Status: Acute (2) Chest pain Code(s): R07.9 - Chest pain, unspecified Status: Acute (3) Renal insufficiency Code(s): N28.9 - Disorder of kidney and ureter, unspecified Status: Acute - Plan A-fib w/ RVR New Onset, found to be in SVT w/ HR >200's, however noted to be in A-fib w/ RVR once rate slowed, s/p Cardizem IV and Metoprolol PO in ER. Cardiology consult appreciated. Echo with normal EF. -telemetry. -continue Metoprolol 25mg bid. -pt and deferred ablation. Follow up with cardiology. Confusion Nonfocal exam. Likely s/t Valium. Improved. TSH, B12 and ammonia WNL. UA negative. -continue to hold Valium. -neuro checks. -frequent orientation. -PT eval. HTN Blood pressure now improved. -continue Lopressor and lisinopril. Amlodipine increased. MARYAN Creatinine 1.11, previously 0.85 on 01/04/13. -resolved with IVF for hydration. DVT Prophylaxis: Lovenox Discharge Planning: Await cardiology clearance (2) Chest pain Qualifiers: Chest pain type: unspecified Qualified Code(s): R07.9 - Chest pain, unspecified
[2018-01-10] MEDS: Enoxaparin Inj 40 MG/0.4 ML Syringe SQ SCH (15:14)
--- NOTE | 2018-01-10 17:00 | P.PN ---
Subjective Interval history: Doing fine Physical Exam Vital signs: Vital Signs 01/09/18 17:00 01/09/18 18:00 01/09/18 19:00 Temperature Pulse Rate 62 62 59 L Respiratory Rate Blood Pressure Pulse Oximetry 01/09/18 20:00 01/09/18 21:00 01/09/18 22:00 Temperature 98.1 F Pulse Rate 70 90 97 H Respiratory Rate 18 Blood Pressure 179/118 H Pulse Oximetry 90 L 01/09/18 23:00 01/10/18 00:00 01/10/18 01:00 Temperature 98.1 F Pulse Rate 97 H 74 72 Respiratory Rate 16 Blood Pressure 132/81 Pulse Oximetry 92 L 01/10/18 02:00 01/10/18 03:00 01/10/18 03:44 Temperature Pulse Rate 58 L 70 Respiratory Rate 16 Blood Pressure Pulse Oximetry 01/10/18 03:57 01/10/18 04:00 01/10/18 05:00 Temperature 98.4 F Pulse Rate 70 72 68 Respiratory Rate 16 Blood Pressure 157/90 H Pulse Oximetry 98 01/10/18 06:00 01/10/18 07:00 01/10/18 08:00 Temperature 98.1 F Pulse Rate 76 81 80 Respiratory Rate 18 Blood Pressure 171/95 H Pulse Oximetry 98 01/10/18 09:00 01/10/18 10:00 01/10/18 11:00 Temperature Pulse Rate 74 78 85 Respiratory Rate Blood Pressure Pulse Oximetry 01/10/18 12:00 01/10/18 13:00 01/10/18 14:00 Temperature 98.2 F Pulse Rate 76 78 86 Respiratory Rate 18 Blood Pressure 165/97 H Pulse Oximetry 98 01/10/18 15:00 01/10/18 16:00 Temperature 98.2 F Pulse Rate 79 71 Respiratory Rate 18 Blood Pressure 151/85 H Pulse Oximetry 95 Intake & Output 01/09/18 01/10/18 01/10/18 18:59 06:59 18:59 Intake Total 500 / 500 240 / 240 Output Total 260 / 260 325 / 325 Balance 240 / 240 -85 / -85 Weight 72 kg Intake: Oral 500 / 500 240 / 240 Output: Urine 260 / 260 325 / 325 Other: Date of Last Bowel Movement 01/08/18 01/08/18 01/08/18 # Bowel Movements 0 - Constitutional no acute distress - Routine HEENT Exam Head: Present: normocephalic Eye: Present: PERRL ENT: Present: mucous membranes moist - Routine Respiratory Exam Present: CTA bilaterally - Routine Cardiovascular Exam Present: RRR, S1, S2 - Routine Neurological Exam Present: alert, oriented X3 - Detailed Neurological Exam: Coma Scale Eye Opening: Spontaneous Verbal Response: Oriented Motor Response: Obey commands [place] Coma Scale Total: 15 Results - Labs CBC & Chem 7: 01/08/18 06:27 01/09/18 06:00 Assessment and Plan - Assessment (1) Atrial fibrillation with RVR Code(s): I48.91 - Unspecified atrial fibrillation Status: Acute - Plan patient in sinus rhythm On/off episodes of disorientation and hallucination. Family decided for medical management Continue with current meds I will be available on a PRN basis
[2018-01-11 03:48] VITALS: O2SAT 97
[2018-01-11 08:22] VITALS: BP 144/87; RESP 20; TEMP 98.1
[2018-01-11] MEDS ORDERED: amLODIPine 5 MG Tablet PO SCH (09:00)
[2018-01-11] MEDS: Levothyroxine 88 MCG Tablet PO SCH (09:21)
[2018-01-11] MEDS: Lisinopril 20 MG Tablet PO SCH (09:21)
[2018-01-11] MEDS: Senna/Docusate Sodium 8.6/50 MG Tablet PO SCH (09:22)
[2018-01-11] MEDS: buPROPion 150 MG 12 HR Tablet PO SCH (09:22)
[2018-01-11] MEDS: Enoxaparin Inj 40 MG/0.4 ML Syringe SQ SCH (09:23)
[2018-01-11] MEDS: Metoprolol Tartrate 25 MG Tablet PO SCH (09:24)
--- NOTE | 2018-01-11 10:00 | P.DS ---
Date of admission: 01/07/18 22:18 Primary care physician: Ken Vogel MD Anticipated date of discharge: 01/11/18 Brief History from admission: This is a 72-year-old female with a PMH of HTN who was brought to the ER by EMS for c/o chest pain. Pt states she had sudden onset of palpitations earlier tonight associated w/ "chest pressure". Upon EMS arrival, noted to be in SVT w / HR >200's, s/p Adenosine 6mg IV w/ conversion to NSR. While in ER, had recurrent episode of SVT, s/p Adenosine 12mg, upon slowing of HR noted to be in A-fib w/ RVR, s/p Cardizem IV and Metoprolol PO in ER, HR currently 100-105. Reports no previous h/o A-fib. States she was seen by PCP on Wednesday and noted to have PVC's, pending appt w/ [facility], Dr. Garcia, in [place]. Denies fever, chills or sick contacts. Chest pain substernal, pressure-like, moderate, non-radiating, associated w/ SOB, now resolved. On arrival, BP 132/77 , HR 178, O2 sat 97% on RA, Afebrile. WBC 11.1. INR 1.0. D-dimer negative. Creatinine 1.11, previously 0.85 on 01/04/13. Troponin 0.04. CXR with no acute findings. Patient update on day of discharge: The pt was feeling better. Her was at the bedside. Their questions were answered. DS: Diagnosis - Discharge Diagnosis (1) Atrial fibrillation with RVR Status: Acute (2) Chest pain Status: Acute (3) Renal insufficiency Status: Acute DS: Medications - Discharge Medications Prescriptions: amlodipine [Norvasc] 10 mg PO DAILY 30 Days #60 tab lisinopril 40 mg PO DAILY 30 Days #60 tab metoprolol tartrate 25 mg PO BID #60 tab DS: Summary Hospital Course: A-fib w/ RVR New Onset, found to be in SVT w/ HR >200's, however noted to be in A-fib w/ RVR once rate slowed. S/p Cardizem IV and metoprolol PO in the ER. Cardiology was consulted. Echo with normal EF. She was monitored on telemetry. We continued Metoprolol 25mg bid. Ablation was recommended by cardiology, however, the pt and her opted to go with medical management at this time. She will follow up with cardiology as an outpt. Confusion Nonfocal exam. Valium was discontinued. TSH, B12 and ammonia WNL. UA negative. She worked with physical therapy. Her mental status continued to improve throughout the hospitalization. HTN Blood pressure improved with medication adjustments. She will continue Lopressor , lisinopril and amlodipine. She will follow up with her PCP. MARYAN Creatinine 1.11, previously 0.85 on 01/04/13. Resolved with IVFs. - Time Spent with Patient Total time spent providing and/or coordinating discharge services: Less than 30 minutes - Quality: VTE Deep Vein Thrombosis/Pulmonary Embolism Present on Admission: No Exam Vital signs: Vital Signs 01/10/18 10:00 01/10/18 11:00 01/10/18 12:00 Temperature 98.2 F Pulse Rate 78 85 76 Respiratory Rate 18 Blood Pressure 165/97 H Pulse Oximetry 98 01/10/18 13:00 01/10/18 14:00 01/10/18 15:00 Temperature Pulse Rate 78 86 79 Respiratory Rate Blood Pressure Pulse Oximetry 01/10/18 16:00 01/10/18 17:00 01/10/18 18:00 Temperature 98.2 F Pulse Rate 71 72 72 Respiratory Rate 18 Blood Pressure 151/85 H Pulse Oximetry 95 01/10/18 19:00 01/10/18 20:00 01/10/18 21:00 Temperature 98.4 F Pulse Rate 72 82 68 Respiratory Rate 16 Blood Pressure 158/92 H Pulse Oximetry 97 01/10/18 22:00 01/10/18 23:00 01/11/18 00:00 Temperature 98.3 F Pulse Rate 72 71 81 Respiratory Rate 16 Blood Pressure 145/99 H Pulse Oximetry 96 01/11/18 01:00 01/11/18 02:00 01/11/18 03:00 Temperature Pulse Rate 64 63 60 Respiratory Rate Blood Pressure Pulse Oximetry 01/11/18 03:47 01/11/18 04:00 01/11/18 05:00 Temperature 98.2 F Pulse Rate 67 60 63 Respiratory Rate 16 Blood Pressure 159/89 H Pulse Oximetry 97 01/11/18 06:00 01/11/18 07:00 01/11/18 08:00 Temperature 98.1 F Pulse Rate 75 63 64 Respiratory Rate 20 Blood Pressure 144/87 H Pulse Oximetry 01/11/18 09:00 Temperature Pulse Rate 90 Respiratory Rate Blood Pressure Pulse Oximetry Intake & Output 01/10/18 01/11/18 01/11/18 18:59 06:59 18:59 Intake Total 720 / 720 240 / 240 Output Total 1200 / 1200 600 / 600 Balance -480 / -480 -360 / -360 Weight 72 kg Intake: Oral 720 / 720 240 / 240 Output: Urine 1200 / 1200 600 / 600 Other: Date of Last Bowel Movement 01/08/18 # Bowel Movements 0 Narrative: GENERAL: No distress. SKIN: Focused skin assessment warm and dry. HEENT: PERRLA, EOMI. No scleral icterus or conjunctival pallor. No lid lag or facial droop. CARDIOVASCULAR: Regular rate and rhythm. No obvious murmurs to auscultation. No chest tenderness to palpation. RESPIRATORY: No obvious rhonchi or wheezing. Clear to auscultation. Breath sounds equal bilaterally. GASTROINTESTINAL: Abdomen soft, non-tender, nondistended. BS normal. MUSCULOSKELETAL: Extremities without clubbing, cyanosis, or edema. No obvious deformities. NEUROLOGICAL: Alert and oriented. Moves all extremities equally. Normal speech. Results Procedures completed during hospitalization: None - Impressions ITS Impressions Chest X-Ray 01/07/18 20:12 CONCLUSION: No evidence of acute cardiopulmonary disease. Discharge Plan - Discharge Disposition Patient Disposition: 01 Discharge Home - Discharge Condition Condition: Stable - Discharge Order Discharge Orders: Discharge Order (Routine); Ordered 01/11/18 Ordered By: Miguelito Benjamin - Discharge Details Anticipated Discharge Date: 01/11/18 - Physicians Team Primary Care Provider: Ken Vogel Attending Provider: Miguelito Benjamin Other Providers: Cristhina Toussaint MD
[2018-01-11 10:28] VITALS: PULSE 68
== END 2018-01-11 11:24 | disposition home or self-care (01) ==
LOC: NEPC 19:44 → NEDA 22:18 → INTOOBSV 22:18 → NEDA 22:41 → HCIS 23:13
PROVIDERS: ADMIT Hospitalist; ATTEND Hospitalist